=== PATIENT | male | born 1965 | race Caucasian/White ===

== ENCOUNTER 2018-07-15 09:57 | Inpatient (IN) | payer BC ==
[2018-07-15] VITALS (17 sets, daily range): BP systolic 118–160; BP diastolic 70–91
[~2018-07-15] VITALS: Ht 177.8 cm; Wt 120.0 kg
[~2018-07-15 09:57] MED LIST: DICY10CA88 PO; NO HOME MEDS; PANT40TA39 PO
[2018-07-15] MEDS ORDERED: ceFOXitin 2 GM ADDvantage bag 100 ML IV ONE (10:45)
[2018-07-15] MEDS ORDERED: famotidine 20mg tablet PO ONE (10:45)
[2018-07-15] MEDS ORDERED: ringers solution, lacted 1,000 ML IV SCH ×2 (10:45→13:39)
[2018-07-15] MEDS ORDERED: cefotetan 2gm/isosm dext IVPB 50 ML IV ONE (10:50)
[2018-07-15] MEDS ORDERED: midazolam 2 mg/2 ml injection ONE (12:13)
[2018-07-15] MEDS ORDERED: fentaNYL /PF 50mcg/ml 5ml ampule ONE (12:14)
[2018-07-15] MEDS ORDERED: sevoflurane 250ml liquid IH ONE (12:29)
[2018-07-15] MEDS ORDERED: propofol inj 20 ML IV ONE (12:41)
[2018-07-15] MEDS ORDERED: LIDOcaine 2% (20mg/ml) 5ml vial ONE (12:41)
[2018-07-15] MEDS ORDERED: rocuronium 10mg/ml inj IV ONE (12:41)
[2018-07-15] MEDS ORDERED: dexamethasone sod phosphate 4mg/ml inj. ONE ×2 (12:41→13:42)
[2018-07-15] MEDS ORDERED: BUPIVAcaine/PF 2.5 mg/ml (0.25%) 30ml vial ONE (12:41)
--- NOTE | 2018-07-15 13:32 | NUR ---
Received from OR via [facility] , accompanied by Anesthesiologist TAHIR and report given by Anesthesiolgist. PATIENT WITH 20G PIV IN LEFT UE RUNNING LRA T100. UMBILICAL DRESSING PRESENT AND PILAR DRAIN WITH SEROSANGUENOUS DRAINAGE PRESENT. VSS AT THIS TIME. 10L MASK WITH 100% SATURATIONS. DENIES PAIN. Addendum: 07/15/18 at 1348 by Meek Vargas RN, RN Amended: Links added.
[2018-07-15] MEDS ORDERED: morphine 4 MG/ML inj SYRINge IV PRN ×2 (13:40)
[2018-07-15] MEDS ORDERED: meperidine/PF 25mg/ml syringe IV PRN ×2 (13:40)
[2018-07-15] MEDS ORDERED: proCHLORperazine 10 MG/2 ml inj IV PRN (13:40)
[2018-07-15] MEDS ORDERED: ondansetron/PF 4mg/2ml inj IV PRN (13:40)
[2018-07-15] MEDS ORDERED: ondansetron/PF 4mg/2ml inj ONE (13:42)
[2018-07-15] MEDS ORDERED: neostigmine methylsulfate 1 MG/ML 10ml vial ONE (13:42)
[2018-07-15] MEDS ORDERED: glycopyrrolate 0.2mg/ml inj ONE (13:42)
[2018-07-15] MEDS ORDERED: CETI-102 PO (13:54)
[2018-07-15] MEDS ORDERED: ibuprofen PO (13:54)
[2018-07-15] MEDS: meperidine/PF 25mg/ml syringe IV PRN ×2 (14:01→14:17)
--- NOTE | 2018-07-15 14:32 | NUR ---
ALL CRITERIA FOR TRANSFER TO THE FLOOR HAS BEEN ACHIEVED. VSS. BED LOW, CALL LIGHT AND VS. SET IN PLACE. RN PRESENT TO ACCEPT CARE. PATIENT RESTING COMFORTABLY IN BED. BELONGINGS SENT WITH PATIENT. DRESSINGS CDI. PILAR DRAIN EMPTIED PRIOR TO TRANSFER. Addendum: 07/15/18 at 1458 by Meek Vargas RN RN Amended: Links added.
--- NOTE | 2018-07-15 15:00 | NUR ---
PATIENT REPORT WAS RECEIVED BY BREAK NURSE GEOVANY FROM [facility] THEN REPORTED TO ME.
[2018-07-15] MEDS: HYDROcodone/acetaminophen 10/325mg tab PO PRN ×2 (16:33→22:02)
[2018-07-15 17:15] LABS: ISTAT ANION GAP 10 (8-12); ISTAT BUN 12 mg/dL (6-19); ISTAT CL 105 mmol/L (99-107); ISTAT CREATININE 0.7 mg/dL (0.8-1.3); ISTAT GLUCOSE 87 mg/dL (70-104); ISTAT HGB 13.6 g/dl (14.0-18.0); ISTAT Hct 40 %PCV (42-52); ISTAT IONIZED CALCIUM 1.14 mmol/L (1.03-1.32); ISTAT K 4.2 mmol/L (3.5-5.1); ISTAT NA 139 mmol/L (135-145); ISTAT TOTAL CO2 24 mmol/L (24-32); ISTAT eGFR > 90 ML/MIN; POC BUN/CREATININE RATIO 17.1 (5.4-32.0)
--- NOTE | 2018-07-15 18:30 | NUR ---
Problems reprioritized. Patient report given, questions answered & plan of care reviewed with CHRIS CARBAJAL.
--- NOTE | 2018-07-15 18:35 | NUR ---
Patient in room [facility]. I have received report from THIAGO CARBAJAL and had the opportunity to ask questions and assume patient care.
[2018-07-15] MEDS: normal saline 1000ml 1,000 ML IV SCH (19:00)
[2018-07-15] MEDS: piperacillin/tazo 3.375gm/50ml 50 ML IV SCH (20:22)
[2018-07-16] VITALS: BP_SYST 117; BP_SYST 124; BP_DIAS 43; BP_DIAS 70
[2018-07-16] MEDS: normal saline 1000ml 1,000 ML IV SCH ×3 (00:19→22:36)
[2018-07-16] MEDS: piperacillin/tazo 3.375gm/50ml 50 ML IV SCH ×4 (02:44→19:08)
[2018-07-16 04:00] VITALS: BP 121/74
[2018-07-16] MEDS: HYDROcodone/acetaminophen 10/325mg tab PO PRN ×4 (04:44→22:37)
--- NOTE | 2018-07-16 06:18 | NUR ---
Problems reprioritized. Patient report given, questions answered & plan of care reviewed with THIAGO RN.
--- NOTE | 2018-07-16 06:30 | NUR ---
Patient in room [facility]. I have received report from Mal CARBAJAL and had the opportunity to ask questions and assume patient care.
[2018-07-16 07:00] VITALS: BP 125/85
--- NOTE | 2018-07-16 10:12 | NUR ---
Report called to Mary CARBAJAL in [facility].
[2018-07-16 11:02] LABS: BASOPHILS % (AUTO) 0.2 % (0-1); EOSINOPHILS % (AUTO) 0 % (0-6); HEMATOCRIT 38.1 % (42.0-52.0); HEMOGLOBIN 12.9 g/dl (14.0-17.9); LYMPHOCYTES # (AUTO) 0.9 X10'3 (1.1-4.8); MEAN CORPUSCULAR HEMOGLOBIN 29.8 PG (27.0-31.0); MEAN CORPUSCULAR HGB CONC 33.7 g/dL (33.0-36.5); MEAN CORPUSCULAR VOLUME 88.5 FL (78-98); MEAN PLATELET VOLUME 9.7 FL (7.4-10.4); MONOCYTES # (AUTO) 0.5 X10'3 (0-0.9); MONOCYTES % (AUTO) 5.3 % (2-12); NEUTROPHILS # (AUTO) 8.5 X10'3 (1.8-7.7); NEUTROPHILS % (AUTO) 85.5 % (42-75); PLATELET COUNT 234 X10'3 (140-440); RED BLOOD COUNT 4.31 X10'6 (4.70-6.10); RED CELL DISTRIBUTION WIDTH 13.6 % (11.5-14.5)
[2018-07-16] MEDS: enoxaparin 40mg/0.4ml syringe SUBCUT SCH (11:29)
[2018-07-16 12:35] VITALS: BP 136/77
[2018-07-16 18:00] VITALS: BP 120/75
--- NOTE | 2018-07-16 18:05 | NUR ---
Patient in room [facility]. I have received report from Uzair CARBAJAL and had the opportunity to ask questions and assume patient care.
--- NOTE | 2018-07-16 18:30 | NUR ---
Problems reprioritized. Patient report given, questions answered & plan of care reviewed with []. Addendum: 07/16/18 at 1854 by Zack Tatum RN Problems reprioritized. Patient report given, questions answered & plan of care reviewed with Rhiannon CARBAJAL.
[2018-07-16] MEDS: lactobacillus rhamnosus 10,000 MMU CELLS/CAPSULE PO SCH (19:08)
[2018-07-17] MEDS: piperacillin/tazo 3.375gm/50ml 50 ML IV SCH ×4 (01:20→19:27)
[2018-07-17] MEDS: HYDROcodone/acetaminophen 10/325mg tab PO PRN ×3 (05:48→19:28)
[2018-07-17] MEDS: normal saline 1000ml 1,000 ML IV SCH (05:48)
--- NOTE | 2018-07-17 06:30 | NUR ---
Problems reprioritized. Patient report given, questions answered & plan of care reviewed with JUAN ALBERTO bailey.
[2018-07-17 07:00] VITALS: BP 104/61
[2018-07-17] MEDS: lactobacillus rhamnosus 10,000 MMU CELLS/CAPSULE PO SCH ×2 (07:20→19:28)
[2018-07-17] MEDS: enoxaparin 40mg/0.4ml syringe SUBCUT SCH (07:20)
[2018-07-17 11:00] VITALS: BP 148/103
[2018-07-17 18:00] VITALS: BP 117/71
--- NOTE | 2018-07-17 18:12 | NUR ---
Problems reprioritized. Patient report given, questions answered & plan of care reviewed with RAYO CARBAJAL.
--- NOTE | 2018-07-17 18:12 | NUR ---
Patient in room [facility]. I have received report from Perlita CARBAJAL and had the opportunity to ask questions and assume patient care.
[2018-07-18] VITALS: BP 106/64
[2018-07-18] MEDS: piperacillin/tazo 3.375gm/50ml 50 ML IV SCH ×4 (01:36→21:07)
[2018-07-18 05:14] LABS: BASOPHILS % (AUTO) 0.2 % (0-1); EOSINOPHILS # (AUTO) 0.3 X10'3 (0-0.9); EOSINOPHILS % (AUTO) 3.8 % (0-6); HEMOGLOBIN 13.4 g/dl (14.0-17.9); LYMPHOCYTES # (AUTO) 1.3 X10'3 (1.1-4.8); LYMPHOCYTES % (AUTO) 17.8 % (21-51); MEAN CORPUSCULAR HEMOGLOBIN 29.2 PG (27.0-31.0); MEAN CORPUSCULAR HGB CONC 32.8 g/dL (33.0-36.5); MEAN CORPUSCULAR VOLUME 89.2 FL (78-98); MEAN PLATELET VOLUME 9.6 FL (7.4-10.4); MONOCYTES # (AUTO) 0.6 X10'3 (0-0.9); MONOCYTES % (AUTO) 8.3 % (2-12); NEUTROPHILS % (AUTO) 69.9 % (42-75); PLATELET COUNT 296 X10'3 (140-440); RED BLOOD COUNT 4.59 X10'6 (4.70-6.10); RED CELL DISTRIBUTION WIDTH 13.8 % (11.5-14.5); WHITE BLOOD COUNT 7.1 X10'3 (4.5-11.0)
--- NOTE | 2018-07-18 06:14 | NUR ---
Patient in room [facility]. I have received report from Rhiannon CARBAJAL and had the opportunity to ask questions and assume patient care.
[2018-07-18] MEDS ORDERED: magnesium hydroxide 30ml (MOM) UD suspension PO ONE (06:35)
--- NOTE | 2018-07-18 06:36 | NUR ---
Problems reprioritized. Patient report given, questions answered & plan of care reviewed with Shelby CARBAJAL.
[2018-07-18] MEDS: lactobacillus rhamnosus 10,000 MMU CELLS/CAPSULE PO SCH ×2 (07:36→19:30)
[2018-07-18] MEDS: enoxaparin 40mg/0.4ml syringe SUBCUT SCH (07:37)
[2018-07-18 08:00] VITALS: BP 112/72
[2018-07-18 12:49] VITALS: BP 107/68
--- NOTE | 2018-07-18 18:18 | NUR ---
Problems reprioritized. Patient report given, questions answered & plan of care reviewed with Mary CARBAJAL.
--- NOTE | 2018-07-18 18:20 | NUR ---
Patient in room [facility]. I have received report from Shelby Cuello and had the opportunity to ask questions and assume patient care.
[2018-07-18 19:00] VITALS: BP 118/68
[2018-07-18] MEDS: HYDROcodone/acetaminophen 10/325mg tab PO PRN (21:06)
[2018-07-19] VITALS: BP 118/73
[2018-07-19] MEDS: piperacillin/tazo 3.375gm/50ml 50 ML IV SCH ×4 (02:00→20:24)
--- NOTE | 2018-07-19 06:18 | NUR ---
Patient in room [facility]. I have received report from Mary CARBAJAL and had the opportunity to ask questions and assume patient care.
--- NOTE | 2018-07-19 06:32 | NUR ---
Problems reprioritized. Patient report given, questions answered & plan of care reviewed with Shelby CARBAJAL.
--- NOTE | 2018-07-19 06:44 | NUR ---
Patient in room [facility]. I have received report from Shelby CARBAJAL and had the opportunity to ask questions and assume patient care.
[2018-07-19 07:33] VITALS: BP 95/61
[2018-07-19] MEDS: lactobacillus rhamnosus 10,000 MMU CELLS/CAPSULE PO SCH ×2 (07:50→20:24)
[2018-07-19] MEDS: enoxaparin 40mg/0.4ml syringe SUBCUT SCH (07:51)
--- NOTE | 2018-07-19 07:54 | NUR ---
DAMIAN DID NOT SCAN BAR CODE WAS TORN. ADMINISTERED MEDICATION MANUALLY USING 3 MEDICATION CHECKS.
--- NOTE | 2018-07-19 09:38 | NUR ---
Student Medication Administration: For this medication-pass time frame, all medication were reviewed, dispensed, administered and documented per hospital policy by Noé instructor of nursing.
--- NOTE | 2018-07-19 09:42 | NUR ---
Student documentation: I have reviewed and agree with all interventions, assessments performed and documented by Noé, assistant director of nursing.
[2018-07-19 10:34] VITALS: BP 115/74
--- NOTE | 2018-07-19 12:08 | NUR ---
Problems reprioritized. Patient report given, questions answered & plan of care reviewed with Nata ware.
--- NOTE | 2018-07-19 12:40 | NUR ---
Patient in room [facility]. I have received report from Shelby and had the opportunity to ask questions and assume patient care.
--- NOTE | 2018-07-19 13:39 | NUR ---
patient reports BMs have been abnormal since Mar when his Sx began, that they are thinner and decreased amount, but denies diarrhea or constipation Addendum: 07/19/18 at 1347 by Nata DE LOS SANTOS Amended: Links added.
[2018-07-19] MEDS: HYDROcodone/acetaminophen 10/325mg tab PO PRN ×2 (15:26→21:56)
--- NOTE | 2018-07-19 16:26 | NUR ---
Student documentation: I have reviewed and agree with all interventions, assessments performed and documented by Nata, licensed nursing assistant.
--- NOTE | 2018-07-19 17:27 | NUR ---
Problems reprioritized. Patient report given, questions answered & plan of care reviewed with Shelby.
--- NOTE | 2018-07-19 18:17 | NUR ---
Problems reprioritized. Patient report given, questions answered & plan of care reviewed with Mary CARBAJAL .
--- NOTE | 2018-07-19 18:47 | NUR ---
Patient in room [facility]. I have received report from Shelby CARBAJAL and had the opportunity to ask questions and assume patient care.
[2018-07-19 19:00] VITALS: BP 109/71
[2018-07-20] VITALS: BP 97/68
[2018-07-20] MEDS: piperacillin/tazo 3.375gm/50ml 50 ML IV SCH ×2 (02:21→08:30)
--- NOTE | 2018-07-20 06:00 | NUR ---
Patient in room [facility]. I have received report from Shelby CARBAJAL and had the opportunity to ask questions and assume patient care.
--- NOTE | 2018-07-20 06:11 | NUR ---
Patient in room [facility]. I have received report from Shaun CARBAJAL and had the opportunity to ask questions and assume patient care. Addendum: 07/20/18 at 0619 by Shelby Hair RN Patient in room [facility]. I have received report from Tosha CARBAJAL and had the opportunity to ask questions and assume patient care. Report not from Shaun CARBAJAL.
--- NOTE | 2018-07-20 06:28 | NUR ---
Problems reprioritized. Patient report given, questions answered & plan of care reviewed with Shelby bailey.
[2018-07-20] MEDS: lactobacillus rhamnosus 10,000 MMU CELLS/CAPSULE PO SCH (07:31)
[2018-07-20] MEDS: enoxaparin 40mg/0.4ml syringe SUBCUT SCH (07:32)
[2018-07-20 09:11] VITALS: BP 125/71
--- NOTE | 2018-07-20 11:09 | NUR ---
Initial: Pt admit w/ ruptured appendix s/p lap appendectomy w/ periappendiceal abscess drainage per MD note. PO 100% regular diet since admit meeting needs. LBM 07/19. No nutrition concerns at this time. Addendum: 07/20/18 at [address] Amended: Links added.
[2018-07-20 11:20] VITALS: BP 108/65
--- NOTE | 2018-07-20 11:52 | NUR ---
Student documentation: I have reviewed and agree with all interventions, assessments performed and documented by Noé, nursing staffing coordinator.
--- NOTE | 2018-07-20 11:53 | NUR ---
Student Medication Administration: For this medication-pass time frame, all medication were reviewed, dispensed, administered and documented per hospital policy by Noé advanced nursing professor.
--- NOTE | 2018-07-20 12:13 | NUR ---
Problems reprioritized. Patient report given, questions answered & plan of care reviewed with Wayne Student.
--- NOTE | 2018-07-20 12:15 | NUR ---
Patient in room [facility]. I have received report from Noé, student nurse and had the opportunity to ask questions and assume patient care.
--- NOTE | 2018-07-20 13:08 | NUR ---
Dr. Crocker rounded stating pt may go home today. Primary RN, Shelby, notified.
--- NOTE | 2018-07-20 13:27 | NUR ---
Patient discharged, VSS, A&Ox4. at side, refused a WC and to be walked out to lobby. All belongings taken, education provided. Dr. Crocker's office to call in antibiotics and pain medications from the office. IV noam'edward lerner in tact.
== END 2018-07-20 13:30 | disposition home or self-care (01) | DRG 340 ==
LOC: PAS IN 09:57 → SUR 3N 14:58
PROVIDERS: ADMIT Surgery; ATTEND Surgery
PROC: 0W9J40Z Drainage of Pelvic Cavity with Drainage Device, Percutaneous Endoscopic Approach (ICD-10-PCS; 2018-07-15)
PROC: 0DTJ4ZZ Resection of Appendix, Percutaneous Endoscopic Approach (ICD-10-PCS; principal; 2018-07-15 12:29)
DX: K35.33 Acute appendicitis with perforation, localized peritonitis, and gangrene, with abscess (principal); E55.9 Vitamin D deficiency, unspecified; F17.210 Nicotine dependence, cigarettes, uncomplicated; G47.30 Sleep apnea, unspecified; N40.0 Benign prostatic hyperplasia without lower urinary tract symptoms; Z82.61 Family history of arthritis; Z83.3 Family history of diabetes mellitus; Z86.19 Personal history of other infectious and parasitic diseases; Z79.899 Other long term (current) drug therapy
CPT/HCPCS: 36415; 80047; 82948; 85025; 87070; 93005; A7000; G0378; J0694; J1100; J1650; J2001; J2175; J2250; J2405; J2543; J2704; J2710; J3010; J3490; J7030; J7120